=== PATIENT | male | born 1960 | race Caucasian/White ===

== ENCOUNTER 2016-11-23 17:24 | Emergency (ER) | payer BC ==
[2016-11-23 17:38] VITALS: RESP 16
--- NOTE | 2016-11-23 17:45 | CPEKG ---
Heart Rate: 69 RR Interval: 870 P-R Interval: 144 QRSD Interval: 150 QT Interval: 432 QTC Interval: 463 P [place]: 50 QRS [place]: 53 T Wave [place]: -1 EKG Severity - ABNORMAL ECG - EKG Impression: SINUS RHYTHM EKG Impression: RIGHT BUNDLE BRANCH BLOCK Electronically Signed By: Riri Barnett 24-Nov-2016 23:00:17
--- NOTE | 2016-11-23 17:46 | EDPHY ---
HPI/HX/ROS/PE/MDM Narrative: CHIEF COMPLAINT: Chest pain HISTORY OF PRESENT ILLNESS: The patient is a 56-year-old male, brought in by EMS , presenting with chest pain that started around 5 p.m. The patient developed centralized chest pain while helping his daughter move out of her apartment. He reports a squeezing sensation that lasted for about 10 minutes. He had associated diaphoresis and labored breathing. His pain resolved before EMS arrival. He received Aspirin during transport. The patient is currently pain free. Of note, he had reflux last night. He states his chest pain today did not feel similar. He denies nausea, shortness of breath, lightheadedness, or dizziness. No lower extremity swelling. REVIEW OF SYSTEMS: Aside from elements discussed in the HPI, a comprehensive 10-point review of systems was reviewed and is negative. PAST MEDICAL HISTORY: Hypercholesterolemia. No history of diabetes, hypertension, family history of coronary artery disease (patient's father with CAD in his 80s). SOCIAL HISTORY: Occasional alcohol. No drug use. From [place], visiting his daughter. Former smoker. VITAL SIGNS: Reviewed by me GENERAL: Well-developed, well-nourished, resting comfortably in no respiratory distress. HEENT: Atraumatic. Eyes: No icterus, no injection. Mouth: moist mucous membranes. No erythema or lesions. Neck: supple with no adenopathy. LUNGS: Clear to auscultation bilaterally, no wheezes, rhonchi or rales. CARDIAC: Regular rate and rhythm, no rubs, murmurs or gallops. ABDOMEN: Soft, nontender, nondistended, bowel sounds normal. BACK: No CVA tenderness. EXTREMITIES: No trauma. No edema. Range of motion is normal throughout. NEURO: Alert and oriented, grossly nonfocal. SKIN: Warm and dry, no rash. PSYCHIATRIC: Normal mentation, no agitation. Portions of this note were transcribed by a adjunct faculty for medical terminology. I personally performed a history, physical exam, medical decision making, and confirmed accuracy of information the transcribed note. ED Course: The patient presents with sudden onset of chest pain. His pain lasted for about 10 minutes with associated shortness of breath and mild diaphoresis. Patient is currently without pain. Plan to check EKG and chest x-ray. Troponin, Lipase, LFT , and BMP were ordered. 12-LEAD EKG: Please see the full report in [facility]. My interpretation: Right bundle branch block. Sinus rhythm Patient's course was discussed with his cousin who is a inspector aligning. Evidently the patient has a known history of a right bundle branch block. Patient underwent a treadmill test in 2013, per the cousin's report. I viewed the x-ray of the chest myself on the PACS system. X-ray is negative. Please see the full radiology report in the imaging section. 7:30 p.m.: Labs are largely unremarkable. Initial troponin is negative. I discussed findings with the patient. Plan for repeat troponin in 4 hours. Patient agrees with the plan. Patient's 2nd troponin is normal. I held a long discussion with the patient and his daughter. He understands that while his troponin is negative, we have not yet evaluated his coronary arteries. We discussed admission to the [facility] and early stress testing. Patient is daughter are leaving to [facility] on Saturday. He would prefer to be discharged and follow up with his cousin. MDM: After history and physical examination, the differential for chest pain was considered, including but not limited to, myocardial ischemia, acute coronary syndrome, pulmonary embolus, chest wall pain, pleural inflammation and pulmonary infectious causes. - Data Points Imaging: I viewed and interpreted images myself Laboratory Results: Laboratory Results 11/23/16 17:45 11/23/16 17:45 General Time Seen by Provider: 11/23/16 17:31 Initial Vital Signs: Initial Vital Signs Temperature (C) 36.9 C 11/23/16 17:36 Heart Rate 79 11/23/16 17:36 Respiratory Rate 16 11/23/16 17:36 Blood Pressure 118/76 11/23/16 17:36 O2 Sat (%) 96 11/23/16 17:36 O2 Delivery Mode Room Air Allergies/Adverse Reactions: No Known Allergies Allergy (Unverified 11/23/16 17:35) Home Medications: Medication Instructions Recorded Aspirin 81mg (*) 11/23/16 Lipitor 11/23/16 Zantac 11/23/16 Departure - Departure Disposition: Home, Routine, Self-Care Clinical Impression: Chest pain Qualifiers: Chest pain type: unspecified Qualified Code(s): R07.9 - Chest pain, unspecified Condition: Good Instructions: Chest Pain (ED) Additional Instructions: #1. Followup with your inspector aligning when your return to [place]. #2. Return to the Emergency Department if chest pain returns, if you develop severe nausea, left arm numbness or pain, or new or worsening symptoms. #3. You were referred to one of our Cardiologists in [place]. Please followup with them if you plan to stay in [facility]. Referrals: Philippe Dominguez MD [Medical Doctor] - As per Instructions Report Scribed for: Janelle Patterson Report Scribed by: Carolynn Palomino Date of Report: 11/23/16 Time of Report: 17:46
[2016-11-23 17:51] LABS: % IMMATURE GRANULYOCYTES 0.3 % (0.0-1.1); ABSOLUTE IMMATURE GRANULOCYTES 0.03 10^3/uL (0.00-0.10); ADD DIFF? NO; ADD MORPH? NO; ADD SCAN? NO; ATYPICAL LYMPHOCYTE FLAG 0 (0-99); FRAGMENT RBC FLAG 0 (0-99); LEFT SHIFT FLG 0 (0-99); LIPEMIA HEMOLYSIS FLAG 80 (0-99); MEAN CELL HEMOGLOBIN 28.6 pg (27.9-34.1); MEAN CELL HEMOGLOBIN CONCENTR. 33.3 g/dL (32.4-36.7); MEAN CELL VOLUME 85.9 fL (81.5-99.8); MEAN PLATELET VOLUME 10.2 fL (8.7-11.7); PLATELET CLUMPS FLAG 0 (0-99); PLATELET COUNT 296 10^3/uL (150-400); RED BLOOD CELL COUNT 5.24 10^6/uL (4.40-6.38); RED CELL DISTRIBUTION WIDTH 13.8 % (11.5-15.2)
[2016-11-23 18:08] LABS: ALANINE AMINOTRANSFERASE 64 IU/L (21-72); ALBUMIN 4.5 g/dL (3.5-5.0); ALKALINE PHOSPHATASE 91 IU/L (38-126); ANION GAP 11 mEq/L (8-16); ASPARTATE AMINOTRANSFERASE 30 IU/L (17-59); BILIRUBIN,TOTAL 0.6 mg/dL (0.1-1.4); BILIRUBIN-CONJUGATED 0.4 mg/dL (0.0-0.5); BILIRUBIN-UNCONJUGATED 0.2 mg/dL (0.0-1.1); CALCIUM 9.6 mg/dL (8.5-10.4); CARBON DIOXIDE 25 mEq/l (22-31); CHLORIDE 104 mEq/L (97-110); GLOMERULAR FILTRATION RATE > 60; GLUCOSE 107 mg/dL (70-100); SODIUM 140 mEq/L (134-144); TOTAL PROTEIN 7.2 g/dL (6.3-8.2)
[2016-11-23 19:03] LABS: TROPONIN I < 0.012 ng/mL (0-0.034)
[2016-11-23 22:39] VITALS: BP 110/76; PULSE 66; TEMP 98.1; O2SAT 94
== END 2016-11-23 22:37 | disposition home or self-care (01) ==
DX: R07.9 Chest pain, unspecified (principal); Z79.82 Long term (current) use of aspirin